=== PATIENT | female | born 1965 | race Hispanic/Latino ===

== ENCOUNTER 2017-01-30 14:06 | Emergency (ER) | payer MEDICAID ==
[2017-01-30 14:24] VITALS: BP 119/78; RESP 16; TEMP 98; O2SAT 99
--- NOTE | 2017-01-30 14:59 | ED PDOC ---
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 states for the past week she's had L upper back pain radiating to her chest. Reports pain is worsened with movement of L shoulder and with deep inspiration. Further states she's had swelling to the area of pain for several years now and she does get pain there intermittently Denies fever, discharge, hemoptysis, hx of DVT/PE, leg pain, recent prolonged immobilization, recent surgery, hormonal therapy. Past Medical History Reviewed: Historical Data, Nursing Documentation, Vital Signs Vital Signs: Last Vital Signs Temp 98 F 01/30/17 14:21 Pulse 105 H 01/30/17 14:21 Resp 16 01/30/17 14:21 BP 119/78 01/30/17 14:21 Pulse Ox 99 01/30/17 15:02 - Medical History PMH: Hypercholesterolemia, Hyperlipidemia, Migraine Denies: HIV, Chronic Kidney Disease - Surgical History Surgical History: Cholecystectomy, Tonsillectomy, - Family History Family History: States: No Known Family Hx - Home Medications Home Medications: Ambulatory Orders Medication Instructions Recorded Dr Talha Nolan's Women's Balance 2 cap PO DAILY 02/20/15 Vitamin Aspirin [Aspirin Chewable] 81 mg PO DAILY #0 chew 02/22/15 Metoclopramide HCl [Reglan] 10 mg PO Q8 PRN #10 tablet 11/28/15 Naproxen [Naprosyn] 500 mg PO BID PRN #12 tablet 11/28/15 Cyclobenzaprine [Cyclobenzaprine 10 mg PO Q8 PRN #30 tab 01/30/17 HCl] Naproxen [Naprosyn] 500 mg PO BID PRN #30 tab 01/30/17 - Allergies Allergies/Adverse Reactions: Allergies Allergy/AdvReac Type Severity Reaction Status Date / Time codeine Allergy RASH Verified 11/27/15 21:50 peroxide Allergy SWELLING Uncoded 02/20/15 12:56 Review of Systems ROS Statement: Except As Marked, All Systems Reviewed And Found Negative Cardiovascular: Positive for: Chest Pain Respiratory: Positive for: Shortness of Breath, Pleuritic Pain Musculoskeletal: Positive for: Back Pain Physical Exam - Reviewed Nursing Documentation Reviewed: Yes Vital Signs Reviewed: Yes - Physical Exam Appears: Positive for: Well, Non-toxic, No Acute Distress Head Exam: Positive for: ATRAUMATIC, NORMAL INSPECTION, NORMOCEPHALIC Skin: Positive for: Normal Color, Warm. Negative for: Rash Eye Exam: Positive for: EOMI, Normal appearance, PERRL ENT: Positive for: Normal ENT Inspection Neck: Positive for: Normal, Painless ROM Cardiovascular/Chest: Positive for: Regular Rate, Rhythm Respiratory: Positive for: CNT, Normal Breath Sounds Gastrointestinal/Abdominal: Positive for: Normal Exam, Bowel Sounds, Soft. Negative for: Tenderness Back: Positive for: Normal Inspection, Other (L parascapular area with lipoma which is tender but without warmth, erythema, or break in skin integrity). Negative for: L CVA Tenderness, R CVA Tenderness, Vertebral Tenderness Extremity: Positive for: Normal ROM Neurologic/Psych: Positive for: Alert, Oriented. Negative for: Aphasia, Facial Droop - Laboratory Results Result Diagrams: 01/30/17 15:10 01/30/17 15:10 - ECG ECG: Positive for: Interpreted By Me ECG Rhythm: Positive for: Sinus Rhythm. Negative for: ST/T Changes Rate: 99 O2 Sat by Pulse Oximetry: 99 - Radiology X-Ray: Interpreted by Me (CXR) X-Ray Interpretation: No Acute Disease - Progress ED Course And Treament: Labs ordered. CTA chest, morphine 2mg IV, zofran 4mg IV ordered. CTA chest: No large central or segmental pulmonary embolus evident. Case d/w Dr. Chopra who agrees with disposition. Pt. informed of results and instructed to f/u with [facility] in 2 days for further evaluation. Disposition - Clinical Impression Clinical Impression: Lipoma - Patient ED Disposition Is Patient to be Admitted: No - Disposition Disposition: Routine/Home Disposition Time: 19:03 Condition: STABLE Prescriptions: Cyclobenzaprine [Cyclobenzaprine HCl] 10 mg PO Q8 PRN #30 tab PRN Reason: Muscle Spasm Naproxen [Naprosyn] 500 mg PO BID PRN #30 tab PRN Reason: Pain Instructions: Lipoma (ED), Back Pain (ED) Forms: [employer] (Polish) Print Language: CITIZEN OF [place]
[2017-01-30 15:16] LABS: BASO % 0.6 % (0.0-2.0); EOS % 0.3 % (0.0-4.0); LYMPH # 1.8 K/uL (1.0-4.3); LYMPH % 36.5 % (20.0-40.0); MEAN CELL VOLUME 86.8 fl (81.0-99.0); MEAN CORPUSCULAR HEMOGLOBIN 29.3 pg (27.0-31.0); MEAN CORPUSCULAR HGB CONC 33.7 g/dL (33.0-37.0); MEAN PLATELET VOLUME 6.7 fl (7.2-11.7); MONO # 0.5 K/uL (0.0-0.8); MONO % 9.9 % (0.0-10.0); NEUT # 2.5 K/uL (1.8-7.0); NEUT % 52.7 % (50.0-75.0); NRBC % 0.2 % (0.0-0.0); RED CELL DISTRIBUTION WIDTH 13.1 % (11.5-14.5); WHITE BLOOD COUNT 4.8 K/uL (4.8-10.8)
--- NOTE | 2017-01-30 15:17 | RAD ---
HISTORY: chest/back pain COMPARISON: 02/20/2015. FINDINGS: LUNGS: The lungs are well inflated and clear. PLEURA: No significant pleural effusion identified, no pneumothorax apparent. CARDIOVASCULAR: Normal. OSSEOUS STRUCTURES: No significant abnormalities. VISUALIZED UPPER ABDOMEN: Normal. OTHER FINDINGS: None. IMPRESSION: No active pulmonary disease.
[2017-01-30 15:25] LABS: ALB/GLOB RATIO 1.4 (1.0-2.1); ALKALINE PHOSPHATASE 78 U/L (38-126); ALT/SGPT 30 U/L (9-52); AST/SGOT 17 U/L (14-36); BILIRUBIN,TOTAL 0.4 mg/dl (0.2-1.3); BLOOD UREA NITROGEN 8 mg/dl (7-17); CALCIUM 9.8 mg/dL (8.4-10.2); CARBON DIOXIDE 28 mmol/L (22-30); CHLORIDE 103 mmol/L (98-107); GFR AFRICAN-AMERICAN > 60; GLUCOSE,RANDOM 107 mg/dL (65-105); POTASSIUM 4.5 MMOL/L (3.6-5.0); SODIUM 143 mmol/l (132-148); TOTAL PROTEIN 8.2 G/DL (6.3-8.2)
[2017-01-30 15:27] LABS: PARTIAL THROMBOPLASTIN TIME 34.1 Seconds (25.6-37.1)
[2017-01-30 15:57] LABS: RBC URINE 2 /hpf (0-3); URINE BACTERIA RARE (<OCC); URINE BILIRUBIN NEGATIVE (NEGATIVE); URINE BLOOD NEGATIVE (NEGATIVE); URINE COLOR YELLOW (YELLOW); URINE GLUCOSE (UA) NEG (Normal); URINE KETONE NEGATIVE (NEGATIVE); URINE LEUKOCYTE ESTERASE NEG Leu/uL (Negative); URINE PROTEIN NEGATIVE (NEGATIVE); URINE UROBILINOGEN 0.2-1.0 mg/dL (0.2-1.0); WBC URINE 1 /hpf (0-5)
[2017-01-30] MEDS ORDERED: Iodixanol 320 MG/ML 100 ML BOTTLE IV ONE (16:37)
[2017-01-30] MEDS ORDERED: Sodium Chloride 0.9% 50 ML IV ONE (16:38)
--- NOTE | 2017-01-30 18:13 | CT ---
CTA chest PE protocol Indication: tachycardic, back/chest pain Technique: Contiguous axial images were obtained through the chest with intravenous contrast enhancement. Sagittal and coronal reconstructions were generated and reviewed. This CT exam was performed using 1 or more of the falling dose reduction techniques: Automated exposure control, adjustment of the MAA and/or kV according to patient size, and/or use of iterative reconstruction technique. IV Contrast: 80 mL Visipaque 320 Radiation dose (DLP): Not available. Comparison: Chest x-ray performed 01/30/17 Findings: Visualized portions of the inferior thyroid gland appear unremarkable. The mediastinal and hilar vascular structures appear within normal limits. The heart appears within normal limits of size. No large central or segmental pulmonary embolus evident. No focal consolidation. No pleural effusion. No pneumothorax. No suspicious pulmonary nodules measuring greater than 5 mm. Small hiatal hernia/ distal esophageal wall thickening. Limited visualized portions of the upper abdomen appear grossly unremarkable. No acute osseous abnormality is detected. Impression: No large central or segmental pulmonary embolus evident.
[2017-01-30 19:03] VITALS: PULSE 99
--- NOTE | 2017-01-31 09:14 | CARD ---
APPROVED REPORT EKG Measurement Heart [id number] <Conclusion> Normal sinus rhythm Possible Left atrial enlargement Borderline ECG
== END 2017-01-30 19:30 | disposition home or self-care (01) ==
LOC: H.ER 14:06
DX: D17.9 Benign lipomatous neoplasm, unspecified (principal); E78.5 Hyperlipidemia, unspecified; Z79.82 Long term (current) use of aspirin
CPT/HCPCS: 71010; 71275; 80053; 81003; 81025; 84484; 85025; 85378; 85610; 85730; 93005; 96374; 96375; 99282; J2270; J2405; Q9967

== ENCOUNTER 2018-10-29 16:05 | Emergency (ER) | payer MEDICAID ==
[2018-10-29 16:13] VITALS: BP 142/89; RESP 18; TEMP 98.4; O2SAT 100
[2018-10-29 16:14] VITALS: BMI 22.2
--- NOTE | 2018-10-29 16:36 | ED PDOC ---
HPI: Skin/Bite Injury Time Seen by Provider: 10/29/18 16:19 Chief Complaint (Nursing): Abnormal Skin Integrity Chief Complaint (Provider): Abnormal Skin Integrity History Per: Patient History/Exam Limitations: no limitations Onset/Duration Of Symptoms: Days Location Of Injury: Right: Arm Additional Complaint(s): Trent TALAVERA [id number] 52 year old female presents to ED with right upper arm pain x2 days. She reports having a lump there for 3 years but it became painful only 2 days ago. Patient also has a lipoma on left upper back which has not changed in size and not been painful for 2 years. She denies fever, chills, antipyretics use, trauma. PMD: none provided Past Medical History Reviewed: Historical Data, Nursing Documentation, Vital Signs Vital Signs: Last Vital Signs Temp 98.4 F 10/29/18 16:13 Pulse 109 H 10/29/18 16:13 Resp 18 10/29/18 16:13 BP 142/89 10/29/18 16:13 Pulse Ox 100 10/29/18 16:13 Primary Care Provider: FAMILY PROVIDER,NO - Medical History PMH: Hypercholesterolemia, Hyperlipidemia, Migraine Denies: HIV, Chronic Kidney Disease - Surgical History Surgical History: Cholecystectomy, Tonsillectomy, - Family History Family History: States: No Known Family Hx - Social History Current smoker - smoking cessation education provided: No Ex-Smoker (has not smoked in the last 12 months): Yes Alcohol: None Drugs: Denies - Home Medications Home Medications: Ambulatory Orders Medication Instructions Recorded Dr Talha Nolan's Women's Balance 2 cap PO DAILY 02/20/15 Vitamin Aspirin [Aspirin Chewable] 81 mg PO DAILY #0 chew 02/22/15 Metoclopramide HCl [Reglan] 10 mg PO Q8 PRN #10 tablet 11/28/15 Naproxen [Naprosyn] 500 mg PO BID PRN #12 tablet 11/28/15 Cyclobenzaprine [Cyclobenzaprine 10 mg PO Q8 PRN #30 tab 01/30/17 HCl] Naproxen [Naprosyn] 500 mg PO BID PRN #30 tab 01/30/17 Cephalexin [cephalexin] 500 mg PO Q6 #28 cap 10/29/18 Sulfamethoxazole/Trimethoprim 2 tab PO BID #28 tab 10/29/18 [Bactrim DS 800 mg-160 mg] - Allergies Allergies/Adverse Reactions: Allergies Allergy/AdvReac Type Severity Reaction Status Date / Time codeine Allergy RASH Verified 11/27/15 21:50 peroxide Allergy SWELLING Uncoded 02/20/15 12:56 Review of Systems ROS Statement: Except As Marked, All Systems Reviewed And Found Negative Constitutional: Negative for: Fever, Chills, Other (trauma) Skin: Positive for: Other (right upper arm lump is painful, lipoma on left upper back with no pain) Physical Exam - Reviewed Nursing Documentation Reviewed: Yes Vital Signs Reviewed: Yes - Physical Exam Appears: Positive for: No Acute Distress Skin: Negative for: Normal Color (right posterior upper arm quarter-size indurated mass without fluctuance with some ecchymosis, minimal surrounding erythema, no discharge. Left upper back small non tender non erythemous non fluctuant mass. No break in skin integrity) - ECG O2 Sat by Pulse Oximetry: 100 (RA) Pulse Ox Interpretation: Normal Medical Decision Making Medical Decision Making: Time: 1647 Initial Impression: Initial Plan: Advised to follow up with PMD Dr Arevalo for wound check up but is to return to ED if fever develops or swelling worsens Scribe Attestation: Documented by Barney Headley, acting as a scribe for Tony Rosas PA-C Provider Scribe Attestation: All medical record entries made by the Scribe were at my direction and personally dictated by me. I have reviewed the chart and agree that the record accurately reflects my personal performance of the history, physical exam, medical decision making, and the department course for this patient. I have also personally directed, reviewed, and agree with the discharge instructions and disposition. Disposition - Clinical Impression Clinical Impression: Lipoma, Abscess - Patient ED Disposition Is Patient to be Admitted: No - Disposition Referrals: [facility] [Outside] Disposition: Routine/Home Disposition Time: 16:35 Condition: STABLE Additional Instructions: FOLLOW UP WITH YOUR DOCTOR NEXT WEEK FOR FURTHER EVALUATION RETURN TO ED IMMEDIATELY IF SYMPTOMS WORSEN Prescriptions: Cephalexin [cephalexin] 500 mg PO Q6 #28 cap Sulfamethoxazole/Trimethoprim [Bactrim DS 800 mg-160 mg] 2 tab PO BID #28 tab Instructions: Lipoma , Skin Abscess Forms: [facility] (Surinamese) Print Language: CROATIAN
[2018-10-29 17:13] VITALS: PULSE 86
== END 2018-10-29 16:37 | disposition home or self-care (01) ==
LOC: H.ER 16:05
DX: D17.1 Benign lipomatous neoplasm of skin and subcutaneous tissue of trunk (principal); L02.413 Cutaneous abscess of right upper limb; E78.00 Pure hypercholesterolemia, unspecified; Z79.82 Long term (current) use of aspirin; Z87.891 Personal history of nicotine dependence